=== PATIENT | male | born 1955 | race Caucasian/White ===

== ENCOUNTER → 2023-12-05 01:50 | Outpatient (CLI) | payer MEDICARE, SELFPAY ==
--- NOTE | 2023-12-05 | ETT_ITS ---
APPROVED REPORT Exam: Exercise Treadmill Patient Location: Out-Patient Room/Bed: Stress Nurse: Marifer Carver RN Ordering Provider:CHE MOHAMUD, Contact Number: [phone] BMI: 32.63 Baseline Rhythm: Sinus Rhythm Indications: Chest pain, Medical History Medical History: HLD, HTN, obesity, heavy calcifications on CT scan. Cardiac Medications: Amlodipine, atorvastatin, clonidine, colchicine, diltiazem XR, hydrochlorothiazi de, metoprolol tartrate, allopurinol Cardiac Risk Factors: Family hx, HTN, HLD, obesity Previous Cardiac Procedures: None Pretest Chest Pain Characteristics: None Exercise History: Sedentary Physical Disabilities: Bilat knees Lung Sounds: Clear to auscultation Heart Sounds: Regular Stress Test Details Test: Exercise stress testing was performed using a Rajeev protocol. Rest Stress HR Resting HR Supine: 69 bpm Max Heart Rate (APMHR): 151 bpm Resting HR Standin bpm Target HR (85% APMHR): 128 bpm Max HR Achieved: 136 bpm % of APMHR: 90 Recovery HR: 88 bpm HR response to stress: Normal HR response to stress BP Resting BP Supine: 158/90 mmHg Resting BP Standin/90 mmHg Max BP: 178/70 mmHg Recovery BP: 140/78 mmHg BP response to stress: Normal blood pressure response to stress. ECG Resting ECG: Sinus Rhythm Ectopy: None Stress ECG: Sinus Tachycardia ST Change: No significant ST segment changes noted Arrhythmia: None Recovery ECG: Sinus Rhythm Recovery ST Change: No significant ST segment changes noted Recovery Arrhythmia: Occasional PVC's, occasional PAC's Clinical Reason for Termination: Target HR Achieved, Dyspnea Stress Symptoms: Mod SOB Exercise duration: 05 min02 sec Highest Stage Reached: Stage 2: 2.5 mph at 12% grade. Exercise capacity: 7.05 METs Angina Score: None Vazquez Treadmill Score: 4.5 Rate Pressure Product: [id number] Stress ECG Conclusion 1. Resting EKG showed left anterior fascicular block, late transition 2. Patient exercised on the Rajeev protocol and completed a workload of 7 METS, limited by dyspnea 3. Normal heart rate and blood pressure response to exercise. Patient achieved 90% of predicted hear t rate for age 4. There was no electrocardiographic evidence of myocardial ischemia 5. There were no significant dysrhythmias Vazquez Treadmill Score is 4.5 which is Moderate risk. Stress Test Summary STAGE Time (mins) Speed (mph) Grade (%) HR BP SpO2 SYMPTOMS METS Supine 69 158/90 94 Standing 76 154/90 1 3 1.7 10 121 170/80 95 4.5 2 6 2.5 12 136 Mod SOB 7 1 min recovery 124 172/78 96 3 min recovery 94 178/70 95 6 min recovery 88 140/78 96 SOB resolved
== END ==
PROVIDERS: PCP Family Medicine; Visit Provider Family Medicine
DX: R07.9 Chest pain, unspecified (principal)
CPT/HCPCS: 93016; 93018; 93017

== ENCOUNTER → 2024-12-17 15:04 | Outpatient (BNVA) | payer MEDICARE, SELFPAY | PROVIDERS: PCP Family Medicine; Referring Provider Family Medicine; Visit Provider Urology | DX: N40.1 Benign prostatic hyperplasia with lower urinary tract symptoms (principal); N13.8 Other obstructive and reflux uropathy; R60.0 Localized edema; R39.14 Feeling of incomplete bladder emptying | CPT/HCPCS: 99215 ==